=== PATIENT | male | born 1995 | race Caucasian/White ===

== ENCOUNTER 2019-03-22 11:30 | Emergency (ER) | payer OTHER ==
[2019-03-22] MEDS ORDERED: NA CHLORIDE 0.9% 1,000 ML ONE (13:50)
[2019-03-22] MEDS ORDERED: ONDANSETRON 4 MG/2 ML VIAL ONE (13:50)
[2019-03-22 14:00] LABS: Absolute Lymphocytes (CBC) 0.8 K/uL (0.7-4.9); Basophils % 0.3 % (0-1.3); Hematocrit 43.3 % (39.6-49.0); Lymphocytes % 9.7 % (15.3-44.8); MPV 8.7 fL (7.6-11.3)
[2019-03-22 14:22] LABS: ALT/SGPT 179 U/L (12-78); AST/SGOT 255 U/L (15-37); Albumin 4.4 g/dL (3.4-5.0); Alkaline Phosphatase 50 U/L (45-117); BUN Blood Urea Nitrogen 10 mg/dL (7-18); Bicarbonate 26 mmol/L (21-32); Bilirubin Total 1.1 mg/dL (0.2-1.0); Glucose Level 99 mg/dL (74-106); Lipase 103 U/L (73-393); Protein, Total 7.5 g/dL (6.4-8.2); Sodium Level 140 mmol/L (136-145)
--- NOTE | 2019-03-22 14:38 | EDPHYS ---
Physician Documentation [facility] Name: Tim Gonzalez Age: 23 yrs Sex: Male : 1995 Arrival Date: 03/22/2019 Time: 11:34 Bed 16 Private MD: ED Physician Con Art HPI: 03/22 13:40 This 23 yrs old Male presents to ER via Ambulatory with complaints of jr8 Nausea/Vomiting, Decreased Appetite. 13:40 Pt was seen at [place] x 2 this last week for malaise, nausea. Worked up with normal abd jr8 CT, US. labs performed with elevations in AST and ALT. Has a GI apt tomorrow. Vomited x2 this morning. . Historical: - Allergies: 11:39 No Known Allergies; sv - PMHx: 11:39 None; sv - PSHx: 11:39 None; sv - Immunization history:: Adult Immunizations up to date. - Social history:: Smoking status: Patient/guardian denies using tobacco, Patient uses alcohol, patient/guardian reports recent binge of alcohol consumption. - Ebola Screening: : No symptoms or risks identified at this time. ROS: 13:41 Constitutional: Negative for fever, chills, and weight loss, Eyes: Negative for injury, jr8 pain, redness, and discharge, ENT: Negative for injury, pain, and discharge, Neck: Negative for injury, pain, and swelling, Cardiovascular: Negative for chest pain, palpitations, and edema, Respiratory: Negative for shortness of breath, cough, wheezing, and pleuritic chest pain, Back: Negative for injury and pain, MS/Extremity: Negative for injury and deformity, Skin: Negative for injury, rash, and discoloration, Neuro: Negative for headache, weakness, numbness, tingling, and seizure. 13:41 Abdomen/GI: Positive for nausea, vomiting, and diarrhea. Exam: 13:41 Constitutional: This is a well developed, well nourished patient who is awake, alert, jr8 and in no acute distress. Head/Face: Normocephalic, atraumatic. Eyes: Pupils equal round and reactive to light, extra-ocular motions intact. Lids and lashes normal. Conjunctiva and sclera are non-icteric and not injected. Cornea within normal limits. Periorbital areas with no swelling, redness, or edema. ENT: Nares patent. No nasal discharge, no septal abnormalities noted. Tympanic membranes are normal and external auditory canals are clear. Oropharynx with no redness, swelling, or masses, exudates, or evidence of obstruction, uvula midline. Mucous membranes moist. Neck: Trachea midline, no thyromegaly or masses palpated, and no cervical lymphadenopathy. Supple, full range of motion without nuchal rigidity, or vertebral point tenderness. No Meningismus. Chest/axilla: Normal chest wall appearance and motion. Nontender with no deformity. No lesions are appreciated. Cardiovascular: Regular rate and rhythm with a normal S1 and S2. No gallops, murmurs, or rubs. Normal PMI, no JVD. No pulse deficits. Respiratory: Lungs have equal breath sounds bilaterally, clear to auscultation and percussion. No rales, rhonchi or wheezes noted. No increased work of breathing, no retractions or nasal flaring. Back: No spinal tenderness. No costovertebral tenderness. Full range of motion. Skin: Warm, dry with normal turgor. Normal color with no rashes, no lesions, and no evidence of cellulitis. MS/ Extremity: Pulses equal, no cyanosis. Neurovascular intact. Full, normal range of motion. Neuro: Awake and alert, GCS 15, oriented to person, place, time, and situation. Cranial nerves II-XII grossly intact. Motor strength 5/5 in all extremities. Sensory grossly intact. Cerebellar exam normal. Normal gait. 13:41 Abdomen/GI: Inspection: abdomen appears normal, Bowel sounds: normal, Palpation: abdomen is soft and non-tender, in all quadrants, Indicators: McBurney's point is not tender, Davila's sign is negative, Rovsing's sign is negative, Obturator sign is negative, Psoas sign is negative. Vital Signs: 11:40 BP 139 / 75; Pulse 71; Resp 16; Temp 97.9(O); Pulse Ox 98% ; sv 13:57 BP 129 / 80; Pulse 73; Resp 16; Pulse Ox 98% ; bp MDM: 13:11 Patient medically screened. jr8 14:34 Data reviewed: vital signs, nurses notes, diagnostic data from outside facility, jr8 amylase and lipase, CBC, white blood cell count, hemoglobin, hematocrit, platelets, electrolytes, sodium, potassium, chloride, serum bicarbonate, BUN, creatinine, serum glucose, hepatic panel, radiologic studies, CT scan, ultrasound, lab test result(s), and as a result, I will discharge patient. Data interpreted: Pulse oximetry: on room air is 98 %. Interpretation: normal. 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 ED course: pt has improved, labs have improved, pt has GI FU tomorrow, no acute abd findings. . 03/22 13:34 Order name: CBC with Diff; Complete Time: 14:02 jr8 03/22 13:34 Order name: CMP; Complete Time: 14:33 8 03/22 13:34 Order name: Hepatitis Panel [facility] 03/22 13:34 Order name: Lipase; Complete Time: 14:33 jr8 Administered Medications: 13:45 Drug: NS 0.9% 1000 ml Route: IV; Rate: 1000 ml; Site: left antecubital; bp 15:33 Follow up: IV Status: Completed infusion; IV Intake: 1000ml bp 13:56 Drug: Zofran 4 mg Route: IVP; Site: left antecubital; bp 15:33 Follow up: Response: No adverse reaction bp Disposition: 16:21 Co-signature as Attending Physician, Con Art MD I agree with the assessment and manuel plan of care. Disposition: 03/22/19 14:38 Discharged to Home. Impression: Nausea, Elevated Liver Enzymes. - Condition is Stable. - Discharge Instructions: Diet and Hepatitis, Nausea and Vomiting, Adult, Nausea, Adult, Alcoholic Hepatitis. - Work release form, Medication Reconciliation Form, Thank You Letter form. - Follow up: Private Physician; When: 1 - 2 days; Reason: Recheck today's complaints, Re-evaluation by your physician. - Problem is an ongoing problem. - Symptoms have improved. Signatures: Dispatcher [employer] Nasreen Johnson RN RN sv Anderson, Corey, MD MD cha Roszak, Josh, PA PA 8 Balbir, Chad, RN RN bp Corrections: (The following items were deleted from the chart) 15:34 14:38 03/22/2019 14:38 Discharged to Home. Impression: Nausea; Elevated Liver Enzymes. bp Condition is Stable. Forms are Medication Reconciliation Form, Thank You Letter, Antibiotic Education, Prescription Opioid Use. Follow up: Private Physician; When: 1 - 2 days; Reason: Recheck today's complaints, Re-evaluation by your physician. Problem is an ongoing problem. Symptoms have improved. jr8
--- NOTE | 2019-03-22 14:38 | ER ---
Nurse's Notes [facility] Name: Tim Gonzalez Age: 23 yrs Sex: Male : 1995 Arrival Date: 03/22/2019 Time: 11:34 Bed 16 Private MD: Diagnosis: Nausea;Elevated Liver Enzymes Presentation: 03/22 11:37 Presenting complaint: Patient states: nausea started last week, has been seen at [facility] twice and has a f/u with GI MD has elevated LFTs but complains of n/v/d/abd bubbling. Transition of care: patient was not received from another setting of care. Onset of symptoms was March 2019. Risk Assessment: Do you want to hurt yourself or someone else? Patient reports no desire to harm self or others. Care prior to arrival: None. 11:37 Method Of Arrival: Ambulatory sv 11:37 Acuity: CHARLES 3 sv 15:32 Initial Sepsis Screen: Does the patient meet any 2 criteria? No. Patient's initial bp sepsis screen is negative. Does the patient have a suspected source of infection? No. Patient's initial sepsis screen is negative. Triage Assessment: 11:37 General: Appears in no apparent distress. uncomfortable, Behavior is cooperative, sv appropriate for age, anxious. Pain: Complains of pain in abdomen. Neuro: Level of Consciousness is awake, alert, obeys commands, Gait is steady. Respiratory: Respiratory effort is even, unlabored. GI: Reports nausea, vomiting, abd bubbling. 13:10 General: Appears in no apparent distress. uncomfortable, Behavior is cooperative, bp appropriate for age, anxious. Pain: Complains of pain in abdomen. EENT: No deficits noted. Neuro: No deficits noted. Cardiovascular: No deficits noted. Respiratory: No deficits noted. GI: Reports nausea, vomiting. : No signs and/or symptoms were reported regarding the genitourinary system. Derm: No deficits noted. Musculoskeletal: No deficits noted. Historical: - Allergies: 11:39 No Known Allergies; sv - PMHx: 11:39 None; sv - PSHx: 11:39 None; sv - Immunization history:: Adult Immunizations up to date. - Social history:: Smoking status: Patient/guardian denies using tobacco, Patient uses alcohol, patient/guardian reports recent binge of alcohol consumption. - Ebola Screening: : No symptoms or risks identified at this time. Screenin:45 Abuse screen: Denies threats or abuse. Denies injuries from another. Nutritional bp screening: No deficits noted. Tuberculosis screening: No symptoms or risk factors identified. Fall Risk None identified. Assessment: 13:10 General: SEE TRIAGE NOTE. GI: Abdomen is non-distended. bp 15:31 Reassessment: PT D/C HOME AMBULATORY, DX WITH ALCOHOLIC HEPATITIS. bp Vital Signs: 11:40 BP 139 / 75; Pulse 71; Resp 16; Temp 97.9(O); Pulse Ox 98% ; sv 13:57 BP 129 / 80; Pulse 73; Resp 16; Pulse Ox 98% ; bp ED Course: 11:34 Patient arrived in ED. mr 11:39 Triage completed. sv 11:40 Arm band placed on. sv 13:11 Ramírez Tariq PA is PHCP. jrSav 13:11 Con Art MD is Attending Physician. jr8 13:38 Chad Mcgregor, RN is Primary Nurse. bp 13:45 Patient has correct armband on for positive identification. Bed in low position. Call bp light in reach. Side rails up X2. 13:45 Inserted saline lock: 20 gauge in left antecubital area, using aseptic technique. Blood bp collected. 15:31 No provider procedures requiring assistance completed. IV discontinued, intact, bp bleeding controlled, No redness/swelling at site. Pressure dressing applied. Administered Medications: 13:45 Drug: NS 0.9% 1000 ml Route: IV; Rate: 1000 ml; Site: left antecubital; bp 15:33 Follow up: IV Status: Completed infusion; IV Intake: 1000ml bp 13:56 Drug: Zofran 4 mg Route: IVP; Site: left antecubital; bp 15:33 Follow up: Response: No adverse reaction bp Intake: 15:33 IV: 1000ml; Total: 1000ml. bp Outcome: 14:38 Discharge ordered by . jr8 15:32 Discharged to home ambulatory. bp 15:32 Condition: stable 15:32 Discharge instructions given to patient, Instructed on discharge instructions, follow up and referral plans. 15:34 Patient left the ED. bp Signatures: Nasreen Cox RN RN SamayoaNatty mr Ramírez Tariq PA PA jrChad Tan, RN RN bp Corrections: (The following items were deleted from the chart) 11:41 11:40 BP 139 / 75; Pulse 71bpm; Resp 16bpm; Pulse Ox 98%; sv sv
[2019-03-22 15:52] VITALS: TEMP 97.9; O2SAT 98
[2019-03-22 15:53] VITALS: BP 129/80
[2019-03-25 14:44] LABS: HBsAG Nonreactive (Nonreactive)
== END 2019-03-22 15:34 | disposition home or self-care (01) ==
LOC: ER 11:30
DX: R94.5 Abnormal results of liver function studies (principal)
CPT/HCPCS: 96361; 85025; 36415; 83690; 80053; 80074; 96374; 99283; J7030; J2405

== ENCOUNTER 2019-09-19 03:39 | Emergency (ER) | payer OTHER ==
--- OUTSIDE RECORDS SUMMARY | 2019-09-19 03:41 | XMS REPORT ---
:1995 [facility] Address [address] [place] [address] Care Team Providers Name Role Phone Unavailable Unavailable Unavailable Problems This patient has no known problems. Allergies, Adverse Reactions, Alerts This patient has no known allergies or adverse reactions. Medications This patient has no known medications.
--- NOTE | 2019-09-19 04:07 | ER ---
Nurse's Notes [facility] Name: Tmi Gonzalez Age: 24 yrs Sex: Male : 1995 Arrival Date: 09/19/2019 Time: 03:40 Bed 6 Private MD: Diagnosis: Dental caries Presentation: 09/18 03:51 Chief complaint: Patient states: ITS MY WISDOM TOOTH. IT REALLY HURTS. 10/10 PAIN SCALE rv X 2 DAYS. NO FEVER. Coronavirus screen: Proceed with normal triage. Ebola Screen: No symptoms or risks identified at this time. Initial Sepsis Screen: Does the patient meet any 2 criteria? No. Patient's initial sepsis screen is negative. Does the patient have a suspected source of infection? No. Patient's initial sepsis screen is negative. Risk Assessment: Do you want to hurt yourself or someone else? Patient reports no desire to harm self or others. Onset of symptoms was September 17, 2019 at 08:00. 03:51 Method Of Arrival: Ambulatory rv 03:51 Acuity: CHARLES 5 rv Triage Assessment: 03:54 General: Appears in no apparent distress. Behavior is calm, cooperative. Pain: rv Complains of pain in lower left third molar Pain currently is 10 out of 10 on a pain scale. EENT: Reports pain in lower left third molar Pain is 10 out of 10 on a pain scale. Neuro: Level of Consciousness is awake, alert, obeys commands, Oriented to person, place, time, situation. Derm: Skin is intact. Historical: - Allergies: 03:54 PPI; rv - PMHx: 03:54 GASTRITIS; rv - PSHx: 03:54 None; rv - Immunization history:: Adult Immunizations up to date, Flu vaccine is not up to date. - Social history:: Smoking status: Patient denies any tobacco usage or history of. Screenin:55 Abuse screen: Denies threats or abuse. Denies injuries from another. Nutritional rv screening: No deficits noted. Tuberculosis screening: No symptoms or risk factors identified. Fall Risk None identified. Assessment: 03:56 Reassessment: SEE TRIAGE NOTES. rv Vital Signs: 03:51 BP 136 / 85; Pulse 67; Resp 16; Temp 97.9; Pulse Ox 99% on R/A; Weight 65.77 kg; Height rv 5 ft. 9 in. (175.26 cm); Pain 03/25; 03:51 Body Mass Index 21.41 (65.77 kg, 175.26 cm) rv ED Course: 03:40 Patient arrived in ED. ds1 03:45 Cesar Galindo MD is Attending Physician. tw4 03:51 Kody Hazel, RN is Primary Nurse. rv 03:54 Triage completed. rv 03:55 Arm band placed on Patient placed Patient notified of wait time. rv 03:55 Bed in low position. Call light in reach. rv 03:55 No provider procedures requiring assistance completed. Patient admitted, IV remains in rv place. Administered Medications: 03:47 CANCELLED (Physician Discretion): Motrin 800 mg PO once tw4 Outcome: 04:02 Medical screen evaluation completed per provider. Patient declined treatment. rv 04:02 Condition: unchanged 04:03 Following a medical screening exam, the patient was provided information regarding rv alternative care sites and resources available per registration personnel. 04:06 Discharge ordered by . tw4 04:07 Patient left the ED. rv Signatures: Krys Mckeon ds1 Cesar Galindo MD MD tw4 Kody Hazel, RN RN rv
--- NOTE | 2019-09-19 04:07 | EDPHYS ---
Physician Documentation [facility] Name: Tim Gonzalez Age: 24 yrs Sex: Male : 1995 Arrival Date: 09/19/2019 Time: 03:40 Bed 6 Private MD: ED Physician Cesar Galindo HPI: 09/18 03:58 This 24 yrs old Male presents to ER via Ambulatory with complaints of tw4 Toothache. 03:58 The patient presents with pain. The problem is located in the lower left third molar. tw4 Onset: The symptoms/episode began/occurred 2 day(s) ago. 06:10 Duration: The symptoms are continuous. Modifying factors: The symptoms are alleviated tw4 by nothing, the symptoms are aggravated by nothing. Associated signs and symptoms: The patient has no apparent associated signs or symptoms. Severity of symptoms: At their worst the symptoms were moderate, in the emergency department the symptoms are unchanged. The patient has not experienced similar symptoms in the past. Historical: - Allergies: 03:54 PPI; rv - PMHx: 03:54 GASTRITIS; rv - PSHx: 03:54 None; rv - Immunization history:: Adult Immunizations up to date, Flu vaccine is not up to date. - Social history:: Smoking status: Patient denies any tobacco usage or history of. ROS: 06:10 Constitutional: Negative for fever, chills, and weight loss, Eyes: Negative for injury, tw4 pain, redness, and discharge, Cardiovascular: Negative for chest pain, palpitations, and edema, Respiratory: Negative for shortness of breath, cough, wheezing, and pleuritic chest pain, Abdomen/GI: Negative for abdominal pain, nausea, vomiting, diarrhea, and constipation, Back: Negative for injury and pain, MS/Extremity: Negative for injury and deformity, Skin: Negative for injury, rash, and discoloration, Neuro: Negative for headache, weakness, numbness, tingling, and seizure. Exam: 06:10 Constitutional: This is a well developed, well nourished patient who is awake, alert, tw4 and in no acute distress. Head/Face: Normocephalic, atraumatic. Chest/axilla: Normal chest wall appearance and motion. Nontender with no deformity. No lesions are appreciated. Cardiovascular: Regular rate and rhythm with a normal S1 and S2. No gallops, murmurs, or rubs. Normal PMI, no JVD. No pulse deficits. Respiratory: Lungs have equal breath sounds bilaterally, clear to auscultation and percussion. No rales, rhonchi or wheezes noted. No increased work of breathing, no retractions or nasal flaring. Abdomen/GI: Soft, non-tender, with normal bowel sounds. No distension or tympany. No guarding or rebound. No evidence of tenderness throughout. Back: No spinal tenderness. No costovertebral tenderness. Full range of motion. MS/ Extremity: Pulses equal, no cyanosis. Neurovascular intact. Full, normal range of motion. Neuro: Awake and alert, GCS 15, oriented to person, place, time, and situation. Cranial nerves II-XII grossly intact. Motor strength 5/5 in all extremities. Sensory grossly intact. Cerebellar exam normal. Normal gait. 06:10 ENT: Dental exam: dental caries, that is moderate, specifically in the lower left third molar (#17), gum swelling, that is mild, specifically in the lower left third molar (#17). Vital Signs: 03:51 BP 136 / 85; Pulse 67; Resp 16; Temp 97.9; Pulse Ox 99% on R/A; Weight 65.77 kg; Height rv 5 ft. 9 in. (175.26 cm); Pain 10/10; 03:51 Body Mass Index 21.41 (65.77 kg, 175.26 cm) rv MDM: 03:46 Patient medically screened. tw4 04:03 Differential diagnosis: dental caries, gingivitis. Data reviewed: vital signs, nurses tw4 notes. Counseling: I had a detailed discussion with the patient and/or guardian regarding: the historical points, exam findings, and any diagnostic results supporting the discharge/admit diagnosis. Medical screen evaluation completed. EMTALA emergency medical condition absent. Special discussion: I discussed with the patient/guardian in detail that at this point there is no indication for admission to the hospital. It is understood, however, that if the symptoms persist or worsen the patient needs to return immediately for re-evaluation. Administered Medications: 03:47 CANCELLED (Physician Discretion): Motrin 800 mg PO once tw4 Disposition: 09/19/19 04:06 Discharged to Home. Impression: Dental caries. - Condition is Stable. - Medication Reconciliation Form, Thank You Letter, Antibiotic Education, Prescription Opioid Use form. - Follow up: Private Physician; When: Upon discharge from the Emergency Department; Reason: Recheck today's complaints, Continuance of care, Re-evaluation by your physician. - Problem is new. - Symptoms have improved. Signatures: Cesar Galindo MD MD tw4 Kody Hazel RN RN rv Corrections: (The following items were deleted from the chart) 03:47 03:45 Motrin 800 mg PO once ordered. tw4 04:07 04:06 09/19/2019 04:06 Discharged to Home. Impression: Dental caries. Condition is rv Stable. Forms are Medication Reconciliation Form, Thank You Letter, Antibiotic Education, Prescription Opioid Use. Follow up: Private Physician; When: Upon discharge from the Emergency Department; Reason: Recheck today's complaints, Continuance of care, Re-evaluation by your physician. Problem is new. Symptoms have improved. tw4
[2019-09-19 04:13] VITALS: BP 136/85; TEMP 97.9; O2SAT 99
== END 2019-09-19 04:07 | disposition home or self-care (01) ==
LOC: ER 03:39
DX: K02.9 Dental caries, unspecified (principal)
CPT/HCPCS: 99281